=== PATIENT | female | born 1995 | race Caucasian/White ===

== ENCOUNTER → 2021-02-10 11:30 | Outpatient (CLI) | payer OTHER, SELFPAY ==
--- NOTE | 2021-02-10 11:36 | DI.RAD.S_ITS ---
PROCEDURE: XR TOE LT MIN 2V INDICATIONS: trauma 2nd toe TECHNIQUE: 3 views of the 1st and 2nd toe(s) acquired. COMPARISON: None. FINDINGS: Bones: No fractures or dislocations. No suspicious bony lesions. Soft tissues: No suspicious soft tissue densities. IMPRESSION: No evidence of fracture or dislocation involving the left 2nd toe. Dictated by: Jesus Kendrick M.D. on 02/10/2021 at 13:42 Approved by: Jesus Kendrick M.D. on 02/10/2021 at 13:43
== END ==
PROVIDERS: PCP Registered Nurse; Referring Provider Nurse Practitioner Family; Visit Provider Nurse Practitioner Family
DX: M79.675 Pain in left toe(s) (principal)
CPT/HCPCS: 73660

== ENCOUNTER 2022-10-12 21:41 | Emergency (ER) | payer OTHER, SELFPAY ==
[2022-10-12 21:43] VITALS: BP 136/96; PULSE 91; RESP 18; TEMP 37.3; O2SAT 99; BMI 25.8
[2022-10-12 22:11] LABS: Add Manual Diff / Slide Review NO; Basophils Absolute Auto 100 /uL (0-100); Basophils Percent Auto 0.8 % (0-2); Eosinophils Absolute Auto 300 /uL (0-450); Eosinophils Percent Auto 3.9 % (2-4); Hematocrit 39.9 % (36-46); Hemoglobin 13.9 g/dL (12.0-16.0); Lymphocytes Absolute Auto 3000 /uL (1100-4500); Lymphocytes Percent Auto 41.1 % (25-40); Mean Corpuscular HGB Conc 34.8 % (30-36); Mean Corpuscular Hemoglobin 32.4 PG (26-34); Mean Corpuscular Volume 93.1 fL (80-100); Monocytes Absolute Auto 700 /uL (0-900); Monocytes Percent Auto 10.2 % (3-14); Neutrophils Absolute Auto 3200 /uL (1500-7000); Platelet Count 264 X10^3/uL (150-400); Red Blood Cell Count 4.29 X10^6/uL (4.0-5.2); Red Cell Distribution Width 12.5 % (11.6-14.8); White Blood Cell Count 7.2 X10^3/uL (4.5-11.0)
[2022-10-12 22:21] LABS: Alanine Aminotransferase 23 IU/L (<35); Albumin 4.7 g/dL (3.5-5.0); Albumin Globulin Ratio 1.2 (1.0-2.8); Alkaline Phosphatase 62 U/L (38-126); Aspartate Aminotransferase 25 IU/L (14-36); BUN Creatinine Ratio 26.3 (6-22); Bilirubin Total 0.4 mg/dL (0.2-1.3); Blood Urea Nitrogen 21 mg/dL (7-17); Calcium 9.4 mg/dL (8.4-10.2); Carbon Dioxide 26 mmol/L (22-32); Chloride 105 mmol/L (98-107); Estimated Glomerular Filt Rate > 60 mL/min (>60); Globulin 3.8 g/dL (1.7-4.1); Glucose 105 mg/dL (70-100); HEMOLYSIS 21 (0-50); Lipase 138 U/L (23-300); Potassium 4.2 mmol/L (3.4-5.1); Sodium 139 mmol/L (137-145); Total Protein 8.5 g/dL (6.3-8.2)
--- NOTE | 2022-10-12 23:12 | ED_ITS ---
HPI - General Adult General Chief complaint: Abdominal Pain Stated complaint: severe abdominal pain Time Seen by Provider: 10/12/22 23:06 Source: patient Mode of arrival: Ambulatory Limitations: no limitations History of Present Illness HPI narrative: Patient is a 27-year-old female who is here for evaluation of left-sided adnexal pain. She states she is had discomfort like this for the past couple days. She is had similar discomfort in the past this seems to be worse. She had a copper IUD removed several months ago. No fevers. No change in bowel habits. No urinary symptoms. Has been 2 times in the past. Related Data Home Medications Medication Instructions Recorded Confirmed No Known Home Medications 02/10/21 02/10/21 Allergies Allergy/AdvReac Type Severity Reaction Status Date / Time No Known Drug Allergies Allergy Unverified 02/10/21 11:12 Review of Systems Respiratory Respiratory: Reports system reviewed and no additional complaints, except as documented Gastrointestinal Gastrointestinal: Reports system reviewed and no additional complaints, except as documented Genitourinary Genitourinary: Reports system reviewed and no additional complaints, except as documented Integumentary/Breasts Skin/Breast: Reports system reviewed and no additional complaints, except as documented Patient History Social History Smoking Status: Never smoker Smoking Status: Never smoker Exam Initial Vital Signs Initial Vital Signs: Vital Signs Temperature 99.1 F 10/12/22 21:43 Pulse Rate 91 H 10/12/22 21:43 Respiratory Rate 18 10/12/22 21:43 Blood Pressure 136/96 H 10/12/22 21:43 Pulse Oximetry 99 10/12/22 21:43 Oxygen Delivery Method Room Air 10/12/22 21:[address] [facility] Head: normal to inspection Cardio Rate: regular rate GI Inspection: normal to inspection Palpation: soft, No firm, No guarding and No tender Other: Left adnexa tenderness Skin General: no rashes or lesions noted Neuro General: patient alert, patient awake and moves all extremities Extrem General: normal to inspection and capillary refill normal Course Orders Ordered: ED Orders 10/12/22 21:53 EKG-12 Lead Stat 10/12/22 22:03 Complete Blood Count AUTO DIFF Stat Comprehensive Metabolic Panel Stat Lipase Stat 10/12/22 23:12 US pelvic complete Stat Ondansetron HCl (Ondansetron 4 Mg Odt) 4 mg PO NOW PRN PRN Reason: Nausea And Vomiting Ondansetron HCl (Ondansetron 4 Mg/2 Ml Inj) 4 mg IV NOW PRN PRN Reason: Nausea And Vomiting Discontinued Medications Acetaminophen (Acetaminophen 325 Mg Tablet) 650 mg PO NOW ONE Stop: 10/12/22 23:26 Last Admin: 10/12/22 23:28 Dose: 650 mg Documented By: SPF Hydrocodone Bitart/Acetaminophen (Hydrocodone/Acet 5/325 Tablet) 1 tab PO NOW O NE Stop: 10/12/22 23:13 Last Admin: 10/12/22 23:24 Dose: Not Given Documented By: SPF Hydrocodone Bitart/Acetaminophen (Hydrocodone/Acet 5/325 Prepack) 1 bottle MISC SEEINSTR ONE Stop: 10/13/22 01:29 Vital Signs Vital signs: Vital Signs - 8 hr 10/12/22 21:43 Temperature 99.1 F Pulse Rate 91 H Respiratory Rate 18 Blood Pressure 136/96 H Pulse Oximetry 99 Oxygen Delivery Method Room Air Medical Decision Making Lab Data Lab results reviewed: Yes I reviewed the patient's lab results. 10/12/22 22:03 10/12/22 22:03 Labs: Lab Results 10/12/22 10/12/22 Range/Units 22:03 22:03 WBC 7.2 (4.5-11.0) X10^3/uL RBC 4.29 (4.0-5.2) X10^6/uL Hgb 13.9 (12.0-16.0) g/dL Hct 39.9 (36-46) % MCV 93.1 (80-100) fL MCH 32.4 (26-34) PG MCHC 34.8 (30-36) % RDW 12.5 (11.6-14.8) % Plt Count 264 (150-400) X10^3/uL Neut % (Auto) 44.0 L (50-75) % Lymph % (Auto) 41.1 H (25-40) % Jewell % (Auto) 10.2 (3-14) % Eos % (Auto) 3.9 (2-4) % Baso % (Auto) 0.8 (0-2) % Neut # (Auto) 3200 (0923-4853) /uL Lymph # (Auto) 3000 (3683-6623) /uL Jewell # (Auto) 700 (0-900) /uL Eos # (Auto) 300 (0-450) /uL Baso # (Auto) 100 (0-100) /uL Sodium 139 (137-145) mmol/L Potassium 4.2 (3.4-5.1) mmol/L Chloride 105 (98-107) mmol/L Carbon Dioxide 26 (22-32) mmol/L BUN 21 H (7-17) mg/dL Creatinine 0.80 (0.52-1.04) mg/dL Estimated GFR > 60 (>60) mL/min BUN/Creatinine Ratio 26.3 H (6-22) Glucose 105 H (70-100) mg/dL Calcium 9.4 (8.4-10.2) mg/dL Total Bilirubin 0.4 (0.2-1.3) mg/dL AST 25 (14-36) IU/L ALT 23 (<35) IU/L Alkaline Phosphatase 62 (38-126) U/L Total Protein 8.5 H (6.3-8.2) g/dL Albumin 4.7 (3.5-5.0) g/dL Globulin 3.8 (1.7-4.1) g/dL Albumin/Globulin Ratio 1.2 (1.0-2.8) Lipase 138 (23-300) U/L Point of Care Testing Test Results Negative Urine Dip Bedside Urine Glucose Negative Bedside Urine Bilirubin - Negative Bedside Urine Ketone - Negative Urine Specific [place]ley 1.015 Bedside Urine Occult Blood - Negative Bedside Urine pH 6.0 Bedside Urine Protein - Negative Bedside Urine Urobilinogen - Negative Bedside Urine Nitrite - Negative Bedside Urine Leukocytes - Negative Esterase Point of care testing: Point of Care Testing Test Results Negative Urine Dip Bedside Urine Glucose Negative Bedside Urine Bilirubin - Negative Bedside Urine Ketone - Negative Urine Specific [place] 1.015 Bedside Urine Occult Blood - Negative Bedside Urine pH 6.0 Bedside Urine Protein - Negative Bedside Urine Urobilinogen - Negative Bedside Urine Nitrite - Negative Bedside Urine Leukocytes - Negative Esterase Imaging Data US - INDUSTRIAL HYGIENE TECHNICIAN: Radiologist's Impression: PROCEDURE:? US PELVIC COMPLETE ? INDICATIONS:? LEFT ADNEXAL PAIN ? TECHNIQUE:? Real-time scanning was performed of the pelvic organs, with image documentation.? Additional endovaginal scanning was necessary due to incomplete visualization of the adnexal and endometrial structures by transabdominal scanning.? ? COMPARISON:? None. ? FINDINGS:? ?? Uterus:? Uterus is anteverted and measures 8.5 x 4.1 x 5.4 cm.? The endometrium measures up to 0.8 cm in thickness. ? Ovaries:? The right ovary measures 2.0 x 1.9 x 1.8 cm, with a calculated ovarian volume of 3.6 cc. The left ovary measures 2.9 x 3.1 x 2.2 cm, with a calculated ovarian volume of 10.2 cc. The ovaries have a normal sonographic appearance. Less than 12 follicles can be seen in each ovary.? There is arterial flow demonstrated within the left ovary.? There is an oval slightly hyperechoic mass lesion in the left ovary measuring up to 1.7 x 1.5 x 1.6 cm.? No associated internal vascularity on color Doppler interrogation. ? Other:? There is a small amount of pelvic free fluid which appears within physiologic limits. ? ? IMPRESSION:? ? 1. Slightly hyperechoic mass lesion in the left ovary is nonspecific.? The findings may reflect a possible dermoid.? Further evaluation may be obtained with a pelvic MRI. ? 2. No definite evidence of ovarian torsion.? MDM Narrative Medical decision making narrative: No indication of any infection. No indication for antibiotics. Ultrasound shows mass on left ovary which could be consistent with a dermoid. I did di scuss this with the patient. Advised that she contact a network operations manager provider for follow-up. No indication for surgical consultation. Will treat symptoms for now. She was given return precautions. She expressed understanding and agreement Discharge Plan Departure Patient Disposition: Home Clinical Impression: Pelvic pain Instructions: Chronic Pelvic Pain-Female Activity Restrictions/Additional Instructions: There was the abnormal finding found on the ultrasound that could be consistent with a dermoid cyst. I do recommend that you have follow-up with a network operations manager provider. You can contact our local network operations manager of the number provided below. Use the medication as needed for the discomfort. Contact your primary doctor for a follow-up. Prescriptions: No Action No Known Home Medications Referrals: Benjy Poe ARNP [Primary Care Provider] - Farzaneh Flannery MD [Physician] - Stand Alone Forms: Patient Portal/API
--- NOTE | 2022-10-12 23:12 | DI.US.S_ITS ---
PROCEDURE: US PELVIC COMPLETE INDICATIONS: LEFT ADNEXAL PAIN TECHNIQUE: Real-time scanning was performed of the pelvic organs, with image documentation. Additional endovaginal scanning was necessary due to incomplete visualization of the adnexal and endometrial structures by transabdominal scanning. COMPARISON: None. FINDINGS: Uterus: Uterus is anteverted and measures 8.5 x 4.1 x 5.4 cm. The endometrium measures up to 0.8 cm in thickness. Ovaries: The right ovary measures 2.0 x 1.9 x 1.8 cm, with a calculated ovarian volume of 3.6 cc. The left ovary measures 2.9 x 3.1 x 2.2 cm, with a calculated ovarian volume of 10.2 cc. The ovaries have a normal sonographic appearance. Less than 12 follicles can be seen in each ovary. There is arterial flow demonstrated within the left ovary. There is an oval slightly hyperechoic mass lesion in the left ovary measuring up to 1.7 x 1.5 x 1.6 cm. No associated internal vascularity on color Doppler interrogation. Other: There is a small amount of pelvic free fluid which appears within physiologic limits. IMPRESSION: 1. Slightly hyperechoic mass lesion in the left ovary is nonspecific. The findings may reflect a possible dermoid. Further evaluation may be obtained with a pelvic MRI. 2. No definite evidence of ovarian torsion. We strive to produce accurate, complete, and clear reports of imaging services. To assist us in improving patient care, this report was composed using standard report templates and voice recognition software. Therefore, it may contain abnormal punctuation, insertions and/or omissions. Occasional wrong-word or sound-alike substitutions may occur. Though we review the report and make efforts to correct it, we do recommend that the report be read carefully in proper context to recognize any text inaccuracies. Dictated by: Cali Terrazas M.D. on 10/13/2022 at 1:11 Approved by: Cali Terrazas M.D. on 10/13/2022 at 1:16
[2022-10-12] MEDS: ACETAMINOPHEN 325 MG TABLET 650 MG PO (23:28)
[2022-10-13] MEDS: HYDROCODONE/ACET 5/325 PREPACK 1 BOTTLE MISC (01:40)
[2022-10-13 01:41] VITALS: BP 116/74; PULSE 69; RESP 16; TEMP 36.6; O2SAT 99
== END 2022-10-13 01:42 | disposition home or self-care (01) ==
PROVIDERS: Emergency Provider Emergency Medicine; PCP Registered Nurse
DX: R10.2 Pelvic and perineal pain (principal)
CPT/HCPCS: 36415; 76830; 76856; 80053; 81003; 81025; 83690; 85025; 93005; 93976; 99284

== ENCOUNTER → 2022-10-25 15:34 | Outpatient (CLI) | payer OTHER, SELFPAY ==
--- NOTE | 2022-10-25 | DI.MRI.S_ITS ---
PROCEDURE: MR PELVIS WO/W CON INDICATIONS: Unspecified ovarian cyst, unspecified side TECHNIQUE: Coronal HASTE, sagittal breath-hold T2 FSE; axial T1 FSE with and without fat saturation through the pelvis. Optional long- and short-axis uterine nonbreath-hold T2 FSE through the uterus. Sagittal or axial dynamic VIBE during administration of contrast. Post-contrast axial or coronal VIBE/2-D FLASH with fat saturation from the iliac crests to the symphysis. Optional diffusion weighted imaging and ADC may be performed. COMPARISON: [facility], , US PELVIC COMPLETE, 10/12/2022, 23:39. FINDINGS: Uterus: Uterus is normal in size. Endometrium is normal in thickness. Junctional zone is normal in thickness at 12 mm or less. Adnexa: Both ovaries are normal in size, without suspicious cystic or solid lesions. Urinary system: Bladder wall is normal in thickness. Distal ureters are non distended. Nodes and vessels: No pelvic or inguinal adenopathy by size criteria. Iliac vessels are normal in size. Bowel and peritoneum: No pathologic free pelvic fluid. Inferior colon and small bowel loops are normal in caliber. Bones: Marrow demonstrates unremarkable overall signal. IMPRESSION: No suspicious ovarian/adnexal finding identified. No definite correlate to the suspected left ovarian structure described in the report on recent pelvic ultrasound. Dictated by: Salo Murphy M.D. on 10/26/2022 at 11:41 Approved by: Salo Murphy M.D. on 10/26/2022 at 12:03
== END ==
PROVIDERS: PCP Registered Nurse; Referring Provider Advanced Practice Midwife; Visit Provider Advanced Practice Midwife
DX: N83.209 Unspecified ovarian cyst, unspecified side (principal)
CPT/HCPCS: 72197

== ENCOUNTER → 2023-07-20 08:38 | Outpatient (CLI) | payer OTHER, SELFPAY ==
--- NOTE | 2023-07-20 08:39 | DI.US.S_ITS ---
PROCEDURE: US OB >= 14 WEEKS FETUS INDICATIONS: ANATOMY OUTSIDE/PRIOR DATING DATA: Last menstrual period (LMP): 02/26/2023. LMP-based estimated date of delivery (BALBINA): 12/03/2023. First dating scan (date and location): 07/20/2023, [facility]. TECHNIQUE: Real-time scanning was performed of the fetus, with image documentation and biometric measurements. Endovaginal scanning: no COMPARISON: None. FINDINGS: General: A single living intrauterine gestation is present. Presentation: Breech. Placenta: Placental position is anterior , without previa. Amniotic fluid index: 13.7 cm, normal range is 5-24 cm. Single deepest vertical pocket is 3.8 cm. heart rate: 147 beats per minute. Maternal cervical canal: 3.8 cm long. Normal lower limit is 2.5 cm. biometrics: Biparietal diameter: 4.6 cm, 19 weeks and 6 day Head circumference: 17.5 cm, 20 weeks and 0 day Abdominal circumference: 15 cm, 20 weeks and 2 days Femur length: 3.3 cm, 20 weeks and 3 days Clinically estimated gestational age: 20 weeks and 4 days Composite gestational age from present scan: 20 weeks and 1 day Estimated weight and percentile: 344 grams, 30th percentile Anatomic survey: Neuro: Ventricles are non-dilated at less than 10 mm. Cisterna magna is normal at 3-11 mm. Cerebellum is normal in size and morphology. Nuchal skin fold: Normal at less than 6 mm between 14-21 weeks gestational age. Face: Nose and lips, facial profile are normal. Spine: No evidence for spina bifida. Heart: 4-chambered heart is present. Ventricular outflow tracts are not well seen. Diaphragm: Diaphragm is intact. Stomach: Left-sided stomach is present. Kidneys: No hydronephrosis. Normal is less than 5 mm in 2nd trimester, less than 7 mm in 3rd trimester. Cord: 3-vessel cord has orthotopic insertion. Bladder: Normal in size. Extremities: All 4 extremities identified. IMPRESSION: 1. Single living intrauterine gestation in breech presentation. Appropriate interval growth. 2. Ventricular outflow tracts are not well seen. Attention on follow-up. 3. Remainder of the anatomy is within normal limits. Dictated by: Zayra Garcia M.D. on 07/20/2023 at 20:29 Approved by: Zayra Garcia M.D. on 07/20/2023 at 20:51
== END ==
PROVIDERS: PCP Nurse Practitioner Family; Referring Provider Advanced Practice Midwife; Visit Provider Advanced Practice Midwife
DX: Z36.89 Encounter for other specified antenatal screening (principal); Z3A.20 20 weeks gestation of pregnancy
CPT/HCPCS: 76811

== ENCOUNTER → 2023-08-30 15:39 | Outpatient (CLI) | payer OTHER, SELFPAY ==
--- NOTE | 2023-08-30 15:41 | DI.US.S_ITS ---
PROCEDURE: US OB FOLLOW UP INDICATIONS: RE-EVLUATE CARDIAC OUTFLOW TRACTS OUTSIDE/PRIOR DATING DATA: Last menstrual period (LMP): 02/26/2023. LMP-based estimated date of delivery (BALBINA): 12/03/2023. First dating scan (date and location): 07/20/2023. Estimated date of delivery (BALBINA) from first dating scan: 12/06/2023. The calculations are made using the clinical BALBINA of 12/03/2023. TECHNIQUE: Real-time scanning was performed of the fetus, with image documentation. Endovaginal scanning: Not performed COMPARISON: None. FINDINGS: A single living intrauterine gestation is present. Presentation: Vertex. Placenta: Placental position is anterior, without previa. Amniotic fluid index: 11.9 cm, normal range is 5-24 cm. Single deepest vertical pocket is 4.3 cm. heart rate: 152 beats per minute. Maternal cervical canal: 4.3 cm long. Normal lower limit is 2.5 cm. Clinically estimated gestational age: 26 weeks 3 days anatomy: Normal cardiac outflow tracts. Four channel heart appears normal. IMPRESSION: Single living intrauterine at 26 weeks 3 days, BALBINA of 12/03/2023. Normal cardiac outflow tracts. Dictated by: Santiago Barber M.D. on 08/30/2023 at 16:55 Approved by: Santiago Barber M.D. on 08/30/2023 at 16:56
== END ==
PROVIDERS: PCP Nurse Practitioner Family; Referring Provider Nurse Practitioner Obstetrics & Gynecology; Visit Provider Nurse Practitioner Obstetrics & Gynecology
DX: Z34.02 Encounter for supervision of normal first pregnancy, second trimester (principal); Z3A.26 26 weeks gestation of pregnancy
CPT/HCPCS: 76816

== ENCOUNTER → 2024-08-03 13:53 | Outpatient (CLI) | payer OTHER, SELFPAY ==
[2024-08-03 15:02] LABS: Add Manual Diff / Slide Review NO; Basophils Absolute Auto 100 /uL (0-100); Basophils Percent Auto 1.3 % (0-2); Eosinophils Absolute Auto 100 /uL (0-450); Eosinophils Percent Auto 1.2 % (2-4); Hematocrit 40.2 % (36-46); Hemoglobin 13.9 g/dL (12.0-16.0); Lymphocytes Absolute Auto 1400 /uL (1100-4500); Lymphocytes Percent Auto 26.5 % (25-40); Mean Corpuscular HGB Conc 34.6 % (30-36); Mean Corpuscular Volume 92.3 fL (80-100); Monocytes Absolute Auto 400 /uL (0-900); Monocytes Percent Auto 7.3 % (3-14); Neutrophils Absolute Auto 3300 /uL (1500-7000); Neutrophils Percent Auto 63.7 % (50-75); Platelet Count 257 X10^3/uL (150-400); Red Blood Cell Count 4.35 X10^6/uL (4.0-5.2); Red Cell Distribution Width 12.7 % (11.6-14.8); White Blood Cell Count 5.2 X10^3/uL (4.5-11.0)
[2024-08-03 15:31] LABS: Alanine Aminotransferase 28 IU/L (<35); Albumin 4.7 g/dL (3.5-5.0); Albumin Globulin Ratio 1.5 (1.0-2.8); Alkaline Phosphatase 86 U/L (38-126); Aspartate Aminotransferase 30 IU/L (14-36); Bilirubin Total 0.4 mg/dL (0.2-1.3); Blood Urea Nitrogen 18 mg/dL (7-17); C-Reactive Protein Quant < 0.5 mg/dL (<1.0); Calcium 9.6 mg/dL (8.4-10.2); Carbon Dioxide 24 mmol/L (22-32); Chloride 101 mmol/L (98-107); Estimated Glomerular Filt Rate > 60 mL/min (>60); Globulin 3.2 g/dL (1.7-4.1); Glucose 111 mg/dL (70-100); HEMOLYSIS < 15 (0-50); Potassium 4.7 mmol/L (3.4-5.1); Sodium 134 mmol/L (137-145); Total Protein 7.9 g/dL (6.3-8.2)
[2024-08-03 15:37] LABS: Free T4, Direct Thyroxine 0.76 ng/dL (0.78-2.19)
[2024-08-03 15:51] LABS: Thyroid Stimulating Hormone 2.93 uIU/mL (0.47-4.68)
== END ==
LOC: LAB 13:54
PROVIDERS: PCP Family Medicine; Referring Provider Nurse Practitioner Obstetrics & Gynecology; Visit Provider Nurse Practitioner Obstetrics & Gynecology
DX: Z13.29 Encounter for screening for other suspected endocrine disorder (principal); Z13.9 Encounter for screening, unspecified; Z84.89 Family history of other specified conditions
CPT/HCPCS: 36415; 80053; 84439; 84443; 85025; 86140; 86376; 86800

== ENCOUNTER → 2024-11-28 08:47 | Outpatient (CLI) | payer OTHER, SELFPAY ==
[2024-11-28 10:07] LABS: Free T4, Direct Thyroxine 0.68 ng/dL (0.78-2.19)
[2024-11-28 10:21] LABS: Thyroid Stimulating Hormone 3.55 uIU/mL (0.47-4.68)
== END ==
PROVIDERS: PCP Family Medicine; Referring Provider Family Medicine; Visit Provider Family Medicine
DX: R76.8 Other specified abnormal immunological findings in serum (principal); E03.8 Other specified hypothyroidism
CPT/HCPCS: 36415; 84439; 84443; 86376